=== PATIENT | male | born 1990 | race Caucasian/White ===

== ENCOUNTER 2020-06-21 22:12 | Emergency (ER) | payer MEDICAID ==
[~2020-06-21] VITALS: Ht 180.3 cm; Wt 85.3 kg
[2020-06-21 22:19] VITALS: BP 124/70
--- NOTE | 2020-06-21 22:24 | NUR ---
PT AMBULATED TO BED 06 WITH STEADY GAIT.
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
[2020-06-21 23:17] VITALS: BP 124/70
== END 2020-06-21 23:17 | disposition home or self-care (01) ==
LOC: MED 22:12
DX: F41.0 Panic disorder [episodic paroxysmal anxiety] (principal)
CPT/HCPCS: 99283

== ENCOUNTER 2020-09-11 03:31 | Emergency (ER) | payer MEDICAID ==
[~2020-09-11] VITALS: Ht 177.8 cm; Wt 86.2 kg
[2020-09-11 03:40] VITALS: BP 145/90
--- NOTE | 2020-09-11 03:43 | NUR ---
TO LOBBY A/W BED AMBULATORY
[2020-09-11 04:13] VITALS: BP 145/90
--- NOTE | 2020-09-11 04:39 | NUR ---
SEEN AND EXAMINED BY PAUL WITH ORDERS AND CARRIED OUT
[2020-09-11] MEDS ORDERED: KETOROLAC 60 MG/2 ML VIAL IM ONE (04:45)
--- NOTE | 2020-09-11 05:00 | NUR ---
MEDICATED PER ERMDS ORDER, TOLERATED WELL.
--- NOTE | 2020-09-11 06:00 | NUR ---
PATIENT CALLED FOR XRAY , NO RESPONSE. PATIENT ELOPED FROM FACILITY. DISCHARGE INSTRUCTIONS NOT GIVEN TO PATIENT. DR. GOLDEN NOTIFIED.
--- NOTE | 2020-09-11 06:05 | NUR ---
CALLED FOR THE SECOND TIME, NO RESPONSE
--- NOTE | 2020-09-11 06:10 | NUR ---
CALLED FOR THE THIRD TIME NO RESPONSE
== END 2020-09-11 06:00 | disposition left against medical advice (07) ==
LOC: MED 03:31
DX: M25.522 Pain in left elbow (principal)
CPT/HCPCS: 96372; 99283; J1885

== ENCOUNTER 2021-05-14 23:21 | Emergency (ER) | payer MEDICAID ==
[~2021-05-14] VITALS: Ht 180.3 cm; Wt 86.2 kg
[2021-05-14 23:40] VITALS: BP 127/70
[2021-05-15 00:37] VITALS: BP 127/70
[2021-05-15] MEDS ORDERED: LIDOCAINE/EPI 1% 1:100000 20 ML VIAL INJ ONE (01:00)
[2021-05-15] MEDS ORDERED: SULF-58 PO (01:55)
== END 2021-05-15 02:05 | disposition home or self-care (01) ==
LOC: MED 23:21
DX: L02.414 Cutaneous abscess of left upper limb (principal); L03.114 Cellulitis of left upper limb; Z79.899 Other long term (current) drug therapy
CPT/HCPCS: 10060; 99284; J2001

== ENCOUNTER 2021-07-09 00:45 | Emergency (ER) | payer MEDICAID ==
[~2021-07-09 00:45] MED LIST: SULF-58 PO
--- NOTE | 2021-07-09 00:48 | NUR ---
PT TAKEN TO BED 04 VIA W/C.
--- NOTE | 2021-07-09 00:50 | NUR ---
ERMD AT BEDSIDE.
[2021-07-09] MEDS ORDERED: NALOXONE 0.4 MG/ML VIAL IVP ONE (01:00)
--- NOTE | 2021-07-09 01:08 | NUR ---
PT STATED HE HAS TO RIGHT TO REFUSE SERVICE. PT IS A&0 X4. PT REFUSED IV AND MEDICATION. REMOVED ALL MEDICAL EQUIPMENT. ERMD MADE AWARE.
--- NOTE | 2021-07-09 01:09 | NUR ---
PT STATED HE HAS TO RIGHT TO REFUSE SERVICE, STATED HE DOES NOT WISH TO HAVE NARCAN ADMINISTERED AND IS ALLERGIC. PT IS A&0 X4-PERSON, PLACE, REASON AND TIME. PT HAS THE CAPACITY TO MAKE DECISIONS. PT IS AMBULATORY, HAS A STEADY GAIT.PT REFUSED IV AND MEDICATION. REMOVED ALL MEDICAL EQUIPMENT. ERMD MADE AWARE. PT WAS ABLE TO DRESS SELF WITHOUT ANY HELP.
--- NOTE | 2021-07-09 01:17 | NUR ---
PATIENT ELOPED FROM FACILITY. DISCHARGE INSTRUCTIONS NOT GIVEN TO PATIENT. DR. AVINA NOTIFIED.
== END 2021-07-09 01:17 | disposition left against medical advice (07) ==
LOC: MED 00:45
DX: T40.1X1A Poisoning by heroin, accidental (unintentional), initial encounter (principal); R06.02 Shortness of breath; Y92.89 Other specified places as the place of occurrence of the external cause
CPT/HCPCS: 99281; J2310